=== PATIENT | male | born 1995 ===

== ENCOUNTER 2016-09-27 01:08 | Emergency (ER) | payer SELFPAY ==
[~2016-09-27] VITALS: Ht 177.8 cm; Wt 112.5 kg
[2016-09-27 01:22] VITALS: Ht 177.8 cm; Wt 112.5 kg
--- NOTE | 2016-09-27 03:13 | ERD ---
ER Documentation Chief Complaint Date/Time DATE: 09/27/16 TIME: 03:11 Chief Complaint both eye rednes after spraying nose saline nasal; spray and went to his eye HPI 21-year-old male presents here in emergency department for complaints of bilateral eye redness started tonight. Patient was applying nasal saline drops in both naris, when he laid down, he started to feel burning sensation in both eyes, and tearing. Patient denies any foreign body sensation in the eyes. Patient denies any vision changes. Patient is complaining of pain, burning pain , 4/10 scale, accompanied with tearing. Patient denies any direct trauma in the eye. Patient felt like the liquid from the nasal area went into his eye. ROS All systems reviewed and are negative except as per history of present illness. Medications Home Meds Reported Medications [none] Unknown Strength No Conflict Check 09/27/16 Allergies Allergies: Coded Allergies: No Known Allergy (Unverified , 09/27/16) PMhx/Soc Medical and Surgical Hx: pt denies Medical Hx, pt denies Surgical Hx FmHx Family History: No coronary disease, No diabetes, No other Physical Exam Vitals Vital Signs Date Time Temp Pulse Resp B/P Pulse Ox O2 Delivery O2 Flow Rate FiO2 09/27/16 01:22 97.8 96 20 122/70 100 Physical Exam GENERAL: The patient is well developed and appropriate for usual state of health, in no apparent distress. HEENT: Atraumatic. Noted bilateral eye conjunctival to be erythematous with tearing noted, bilateral eyes are PERRL EOM intact. Ears: Normal tympanic membrane, no erythema or bulging. No ear canal swelling. No ear discharge. Nose : normal nasal turbinates, no erythema or swelling. Normal nasal discharge. Throat: oropharynx clear. No tonsillar swelling or tonsillar exudates. No lymphadenopathy. CHEST: Clear to auscultation bilaterally. There are no rales, wheezes or rhonchi. HEART: Regular rate and rhythm. No murmurs, clicks, rubs or gallops. No S3 or S4. ABDOMEN: Soft, nontender and nondistended. Good bowel sounds. No rebound or guarding. No gross peritonitis. No gross organomegaly or masses. No Reeder sign or McBurney point tenderness. BACK: No midline or flank tenderness. EXTREMITIES: Equal pulses bilaterally. There is no peripheral clubbing, cyanosis or edema. No focal swelling or erythema. Full range of motion. Grossly neurovascularly intact. NEURO: Alert and oriented. Cranial nerves 2-12 intact. Motor strength in all 4 extremities with 5/5 strength. Sensation grossly intact. Normal speech and gait. SKIN: There is no apparent rash or petechia. The skin is warm and dry. HEMATOLOGIC AND LYMPHATIC: There is no evidence of excessive bruising or lymphedema. No gross cervical, axillary, or inguinal lymphadenopathy. Results 24 hrs Current Medications Medications (Trade) Dose Ordered Sig/Braxton Route PRN Reason Start Time Stop Time Status Last Admin Dose Admin Fluorescein Sodium (Cbtau-Z-Tegba) 1 strip ONCE ONCE BOTH EYES 09/27/16 03:30 2 03:31 DC Tetracaine HCl (Tetracaine 0.5% Oph) 1 drop ONCE ONCE BOTH EYES 09/27/16 03:30 2 03:31 DC Procedure Note: After obtaining informed consent, the both eyes was stained using fluorescein dye and was applied with tetracaine ophthalmic solution for anesthesia. After staining the eye, A Wood's lamp was used to evaluate the eye. There is no foreign body noted in the eye. No corneal abrasions noted. Patient tolerated procedure well. Procedures/MDM Medical decision making: Patient's redness of the eye nonspecific this time, possibly a nonspecific conjunctivitis. As per discussion with Dr. Morel, normal saline nasal spray most likely does not cause a reaction in the conjunctiva since it is made of normal saline. He recommended to treat patient with antibiotics and have patient follow-up with eyeglass frames polisher within 1-2 days for reevaluation of symptoms, should return to ER precautions for any vision changes. No symptoms of herpes simplex virus, no foreign body, no corneal abrasion noted, low suspicion for retinal detachment, acute closed angle glaucoma. No Mackenzie sign noted. Patient was given for Vigamox, Naphcon ophthalmic solution, and is advised to follow with primary care doctor in 2-3 days, see eyeglass frames polisher is within 1-2 days. Departure Diagnosis: Primary Impression: Conjunctivitis Conjunctivitis type: unspecified Laterality: bilateral Qualified Code: H10.9 - Conjunctivitis of both eyes, unspecified conjunctivitis type Condition: Stable Patient Instructions: Conjunctivitis Caused by Infection Additional Instructions: Patient was given for Vigamox, Naphcon ophthalmic solution, and is advised to follow with primary care doctor in 2-3 days, see eyeglass frames polisher is within 1-2 days. USMAN SAHU NP Sep 27, 2016 03:13
[2016-09-27] MEDS ORDERED: FLUORESCEIN STRIP BOTH EYES ONE (03:30)
[2016-09-27] MEDS ORDERED: TETRACAINE 0.5% 15 ML OPH BOTH EYES ONE (03:30)
[2016-09-27] MEDS ORDERED: VIGA BOTH EYES (04:01)
[2016-09-27] MEDS ORDERED: NAPH15DR22 BOTH EYES (04:01)
== END 2016-09-27 04:18 | disposition home or self-care (01) ==
LOC: FTE 01:08
DX: H10.9 Unspecified conjunctivitis (principal)
CPT/HCPCS: 99283